=== PATIENT | male | born 1980 | race Caucasian/White ===

== ENCOUNTER 2018-04-09 21:54 | Emergency (ER) | payer SELFPAY ==
[~2018-04-09] VITALS: Ht 180.3 cm; Wt 129.3 kg
--- NOTE | 2018-04-09 22:00 | NUR ---
PT PRESENTED TO THE ER WITH A C/O HIGH BP AND HEADAHCE. PT IS ALSO C/O NAUSEA. PT TOOK 50MG HCTZ [employer]. PT NORMALLY TAKES 25MG HCTZ AND HAS NOT BEEN COMPLIANT WITH TAKING HIS MEDICATION. PT IS ON THE MONITOR AND CONTINUOUS PULSE OX.
[2018-04-09] MEDS ORDERED: ASPIRIN 81 MG TAB.CHEW ONE (22:52)
[2018-04-09] MEDS ORDERED: hydrALAZINE HCL IV 20 MG VIAL ONE (22:52)
[2018-04-09] MEDS ORDERED: ASPIRIN 81 MG TAB.CHEW PO ONE (23:00)
[2018-04-09] MEDS ORDERED: hydrALAZINE HCL IV 20 MG VIAL IV ONE (23:00)
--- NOTE | 2018-04-09 23:01 | NUR ---
20G IV STARTED IN RAC. BLOOD WAS DRAWN AND SENT TO LAB. PT REC'D ASPIRIN ORDERED. PT IS ON THE MONITOR AND CONTINUOUS PULSE OX.
[2018-04-09 23:03] LABS: BASOPHILS # (AUTO) 0.1 /CMM (0.0-0.2); BASOPHILS % (AUTO) 0.5 % (0.0-2.0); EOSINOPHILS % (AUTO) 1.9 % (0.0-6.0); HEMATOCRIT 35 % (39-51); HEMOGLOBIN 11.7 g/dL (13.5-17.5); LYMPHOCYTES # (AUTO) 4.2 /CMM (0.8-4.8); LYMPHOCYTES % (AUTO) 31.4 % (20.0-44.0); MEAN CORPUSCULAR HEMOGLOBIN 30 PG (26.0-33.0); MEAN CORPUSCULAR HGB CONC 34 g/dl (31.0-36.0); MEAN CORPUSCULAR VOLUME 90 fL (80-96); MONOCYTES # (AUTO) 1.2 /CMM (0.1-1.30); MONOCYTES % (AUTO) 9.4 % (2.0-12.0); NEUTROPHILS # (AUTO) 7.5 /CMM (1.8-8.9); NEUTROPHILS % (AUTO) 56.8 % (43.0-81.0); PLATELET COUNT (AUTO) 375 /CMM (150-450); RDW COEFFICIENT OF VARIATION 12.9 (11.5-15.0); RED BLOOD CELL COUNT(AUTO) 3.84 MIL/uL (4.5-6.0); WHITE BLOOD COUNT (AUTO) 13.3 K/uL (4.3-11.0)
[2018-04-09 23:17] LABS: CALCIUM, SERUM 8.6 mg/dL (8.5-10.1); CARBON DIOXIDE 23 mmol/L (21-32); CHLORIDE 99 mmol/L (98-107); CREATININE 3.4 mg/dL (0.6-1.3); GLUCOSE 108 mg/dL (74-106); POTASSIUM 3.7 mmol/L (3.5-5.1); SODIUM SERUM 136 mmol/L (136-145); UREA NITROGEN, BLOOD 51 mg/dL (7-18)
[2018-04-09 23:25] LABS: TROPONIN I < 0.017 ng/mL (0.00-0.056)
[2018-04-09 23:38] LABS: INR 0.91 (0.87-1.13)
--- NOTE | 2018-04-10 00:02 | NUR ---
PT APPEARS TO BE RESTING COMFORTABLY WITH NO S/S OF PAIN OR DISTRESS.
--- NOTE | 2018-04-10 00:52 | NUR ---
PT REC'D MEDICATION ORDERED. WILL CONTINUE TO MONITOR THE PT.
[2018-04-10] MEDS ORDERED: ACETAMINOPHEN ES 500 MG TABLET ONE (00:56)
[2018-04-10] MEDS ORDERED: IBUPROFEN 600 MG TABLET PO ONE ×2 (00:56→01:00)
[2018-04-10] MEDS ORDERED: ACETAMINOPHEN ES 500 MG TABLET PO ONE (01:00)
[2018-04-10] MEDS ORDERED: hydrALAZINE HCL IV 20 MG VIAL IV ONE (01:00)
--- NOTE | 2018-04-10 01:10 | NUR ---
IV removed. Catheter intact and site benign. Pressure and 4x4 applied to site. No bleeding noted.Patient discharged to home in stable condition. Written and verbal after care instructions given. Patient verbalizes understanding of instruction. PT REC'D COPY OF ALL RESULTS. PT AMBULATED OUT WITH A STEADY GAIT.
[2018-04-10 01:25] VITALS: BP 168/108
== END 2018-04-10 01:10 | disposition home or self-care (01) ==
LOC: ER 22:00
DX: I10 Essential (primary) hypertension (principal); R51 Headache; N19 Unspecified kidney failure; F41.9 Anxiety disorder, unspecified; F32.9 Major depressive disorder, single episode, unspecified
CPT/HCPCS: 36415; 71045; 80048; 84484; 85025; 85730; 93005; 96374; 96376; 99284; A4606; J0360; Z7610